=== PATIENT | female | born 1995 | race Two or more races ===

== ENCOUNTER 2023-08-16 06:54 | Inpatient (IN) ==
[2023-08-16] MEDS ORDERED: ZOFRAN INJ 4 MG VIAL IVP PRN (07:05)
[2023-08-16] MEDS ORDERED: REGLAN INJ 10 MG VIAL IVP PRN (07:05)
[2023-08-16] MEDS ORDERED: NUBAIN INJ 20 MG AMP IVP PRN (07:05)
[2023-08-16 07:52] LABS: BASOPHILS % (AUTO) 0.3 % (0.2-1.0); EOSINOPHILS # (AUTO) 0.1 x10^3/uL (0.0-0.2); EOSINOPHILS % (AUTO) 0.9 % (0.9-2.9); HEMATOCRIT 39.3 % (36.0-47.0); HEMOGLOBIN 13.7 g/dL (12.0-16.0); LYMPHOCYTES % (AUTO) 22.2 % (21.0-51.0); MEAN CORPUSCULAR HEMOGLOBIN 31.8 pg (27.0-34.0); MEAN CORPUSCULAR HGB CONC 34.9 g/dL (33.0-35.0); MEAN CORPUSCULAR VOLUME 91.1 fL (80.0-100.0); MONOCYTES # (AUTO) 0.6 x10^3/uL (0.3-0.8); MONOCYTES % (AUTO) 6.5 % (0.0-13.0); NEUTROPHILS # (AUTO) 6.2 x10^3/uL (2.2-4.8); NEUTROPHILS % (AUTO) 70.1 % (42.0-75.0); PLATELET COUNT 121 X10^3/uL (150.0-450.0); RED BLOOD COUNT 4.32 X10^6/uL (3.5-5.4); WHITE BLOOD COUNT 8.9 X10^3/uL (3.6-10.0)
[2023-08-16 07:59] LABS: BLOOD UREA NITROGEN 8 mg/dL (7-18); CALCIUM 8.4 mg/dL (8.5-10.1); CARBON DIOXIDE 21.9 mmol/L (21-32); CHLORIDE 106 mmol/L (98-107); CREATININE 0.65 mg/dL (0.55-1.02); GLUCOSE 79 mg/dL (65-99); POTASSIUM 3.7 mmol/L (3.5-5.1); SODIUM 139 mmol/L (136-145); eGFR NON BLACK RACES > 60 (>60)
[2023-08-16] MEDS: LR 1,000 ML IV 1,000 ML IV SCH (08:00)
[2023-08-16] MEDS: OXYTOCIN 20 UNIT/1,000 ML-NS 20 UNIT/1,000 ML PLAST..BAG IV PRN (08:15)
[2023-08-16 08:31] LABS: BILIRUBIN,URINE NEGATIVE (NEGATIVE); BLOOD/HEMOGLOBIN,URINE 5+ (NEGATIVE); GLUCOSE, URINE NEGATIVE (NEGATIVE); KETONES,URINE NEGATIVE (NEGATIVE); LEUKOCYTE ESTERASE ,URINE NEGATIVE (NEGATIVE); NITRITES,URINE NEGATIVE (NEGATIVE); PROTEIN,URINE 1+ (NEGATIVE); UROBILINOGEN,URINE NORMAL (NORMAL)
[2023-08-16 08:33] LABS: APPEARANCE,URINE CLEAR (CLEAR); COLOR,URINE YELLOW (YELLOW)
[2023-08-16 08:42] LABS: RAPID PLASMA REAGIN NONREACTIVE (NONREACTIVE)
[2023-08-16 08:50] LABS: SQUAMOUS EPITHELIAL CELL,UR RARE /HPF (NEGATIVE)
[2023-08-16 08:51] LABS: BACTERIA,URINE NEGATIVE /HPF (NEGATIVE)
[2023-08-16] MEDS: NUBAIN INJ 200 MG VIAL MULTIDOSE ONE (13:20)
[2023-08-16] MEDS: BETADINE SOLN ONE (15:11)
[2023-08-16] MEDS: PITOCIN ONE (15:15)
[2023-08-16] MEDS ORDERED: MOTRIN TAB 800 MG PO PRN (15:33)
[2023-08-16] MEDS ORDERED: DERMOPLAST PAIN RELIEF SPRAY TOP PRN (16:17)
[2023-08-16] MEDS: OXYTOCIN 20 UNIT/1,000 ML-NS 20 UNIT/1,000 ML PLAST..BAG IV SCH (16:23)
[2023-08-16] MEDS: PITOCIN IVP ONE (16:23)
[2023-08-17 05:51] LABS: HEMATOCRIT 36.2 % (36.0-47.0); HEMOGLOBIN 12.4 g/dL (12.0-16.0)
[2023-08-17 13:01] VITALS: RESP 18
[2023-08-17 17:07] VITALS: BP 112/63; PULSE 83; TEMP 98.2; O2SAT 99
== END 2023-08-17 18:20 | disposition home or self-care (01) | DRG 807 ==
LOC: LD 06:54 → MED/SURG 16:04
PROVIDERS: ADMIT Obstetrics & Gynecology Obstetrics; ATTEND Obstetrics & Gynecology Obstetrics